=== PATIENT | female | born 1955 | race Caucasian/White ===

== ENCOUNTER → 2020-12-08 | Outpatient (CLI) | payer MEDICARE, BC ==
--- NOTE | 2020-12-08 20:07 | REPVR ---
PROCEDURE INFORMATION: Exam: CT Maxillofacial Without Contrast, Sinus Exam date and time: 12/08/2020 10:15 AM Age: 65 years old Clinical indication: Other: Sinusitis TECHNIQUE: Imaging protocol: CT Maxillofacial without contrast. Focus on the sinuses. Radiation optimization: All CT scans at this facility use at least one of these dose optimization techniques: automated exposure control; mA and/or kV adjustment per patient size (includes targeted exams where dose is matched to clinical indication); or iterative reconstruction. COMPARISON: MRA BRAIN - OUTSIDE PRIOR 10/14/2020 2:08 PM FINDINGS: Frontal sinuses: Mucosal disease opacifies the left frontal recess. The right frontal sinus and frontal recess are clear. Ethmoid air cells: Prior partial ethmoidectomies. [id number]-[id number] bilateral ethmoid mucosal thickening. Sphenoid sinuses: A small amount of fluid in the right sphenoid sinus. The right sphenoid ostium is opacified by mucosal disease. [id number]-jc-hhkkogqk mucosal thickening in the left sphenoid sinus. Prior surgical widening of the left sphenoid ostium which is patent. Maxillary sinuses: Prior bilateral uncinectomies and nasal antral window procedures. The maxillary sinus surgical drainage pathways are patent. The maxillary sinuses demonstrate vyjf-[id number]-[id number] mucosal thickening. Nasal cavity/Septum: No nasal cavity masses. Orbital cavity: Thinning of the lenses of the globes consistent with prior lens surgery. Bones/joints: Prior frontal craniotomy partially visualized. 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 Soft tissues: Unremarkable. Vasculature: Aneurysm clips in the interhemispheric fissure region causing beam hardening artifacts. There is coil pack in the region of the right middle cerebral artery causing beam hardening artifact. IMPRESSION: [id number] chronic sinusitis, as above. A small amount of nonspecific fluid in the right sphenoid sinus. Electronically signed by: Malia Basilio On 12/08/2020 20:06:56 PM
== END ==
LOC: M RAD 09:58
PROVIDERS: ATTEND Otolaryngology
DX: J32.0 Chronic maxillary sinusitis (principal)